=== PATIENT | male | born 1995 | race Hispanic/Latino ===

== ENCOUNTER 2017-10-14 19:23 | Emergency (ER) | payer BC ==
[~2017-10-14] VITALS: Ht 180.3 cm; Wt 89.8 kg
[2017-10-14] MEDS ORDERED: LIDOCAINE HCL 2% LOCAL 20 ML VIAL INJ STA (19:43)
[2017-10-14] MEDS ORDERED: LIDOCAINE HCL 1% LOCAL INJ 20 ML VIAL ONE (20:02)
[2017-10-14 20:56] VITALS: BP 120/54
== END 2017-10-14 20:38 | disposition home or self-care (01) ==
LOC: ER 19:23
PROC: 0H97XZZ Drainage of Abdomen Skin, External Approach (ICD-10-PCS; principal; 2017-10-14)
DX: L02.211 Cutaneous abscess of abdominal wall (principal)
CPT/HCPCS: 10061; 99283; J2001 ×2